=== PATIENT | female | born 1955 | race African-American/Black ===

== ENCOUNTER 2025-06-08 10:57 | Emergency (ER) | payer BC, MEDICAID, MEDICARE ==
[~2025-06-08] VITALS: Ht 157.5 cm; Wt 77.0 kg
[~2025-06-08 10:57] MED LIST: POLY17PO43 MT; PROT20 MT; SUCR1TAB MT
[2025-06-08 11:04] VITALS: O2SAT 99
[2025-06-08] MEDS ORDERED: VALA10002 MT (11:44)
[2025-06-08] MEDS ORDERED: IBUP-1455 MT (11:44)
[2025-06-08 11:55] VITALS: BP 126/84; PULSE 97; RESP 19; TEMP 36.7; O2SAT 100
== END 2025-06-08 11:56 | disposition home or self-care (01) ==
LOC: ER 10:57
DX: B02.9 Zoster without complications (principal); Z98.890 Other specified postprocedural states; Z79.899 Other long term (current) drug therapy
CPT/HCPCS: 99283